=== PATIENT | female | born 1965 | race Caucasian/White ===

== ENCOUNTER → 2017-07-02 17:56 | Emergency (ER) | payer OTHER ==
[~2017-07-02] VITALS: Ht 170.2 cm; Wt 64.9 kg
[~2017-07-02 17:56] MED LIST: ACEASPCAF PO; ACET325; ACET325 PO; ACET500 PO; ACET650SUP; ALBU90OI INH; ALBU90OI61 INH; ALEVE220 MG PO; AMOCLA500 PO; AMOX500 PO; AMOX875 PO; AZIT250 PO; AZIT500 PO; Albuterol2.5 MG/0.5 INH; BUDE32NIS; CALCA500CH PO; CEPH500 PO; CIPR250 PO; CIPR500 PO; CODACE30 PO; CODBUTASA PO; CRUTCH4 USE; CYCL10 PO; Cheratussin AC118 ML PO; DIBU30TO PR; DOC250 PO; DOCU100 PO; Duoneb 2.5-0.5 M3 ML INH; ESTR.05P TOP; ESTR2 PO; EXCEDRINE; Esgic Tablet1 EACH PO; Excedrin Extra1 EACH PO; FAMO40 PO; GUAPSEER PO; HYDACE5 PO; HYDACE7.5 PO; HYDGUAL120; HYDGUAL120 PO; HYDHOMSY PO; HYDR1TAB94 PO; IBU; IBUP200; IBUP400 PO; IBUP600 PO; IBUP800; IBUP800 PO; LEVFLO500 PO; LORA1 PO; Loperamide2 MG PO; MELO7.5 PO; META800 PO; METO25 PO; METR500 PO; MULVIT; MULVITA; MULVITMINF; NAPR220 PO; NAPR500 PO; NAPR550 PO; NYQUIL; OMEP10ER PO; OMEP20ER PO; OMEP40CA12 PO; OTC COLD MED; OXYACE5T; OXYACE5T PO; OXYC5 PO; Omeprazole20 M1 PO; PHENA200 PO; PROACE100 PO; PROBIOTIC1 EAC1; PROC10 PO; PROM25 PO; PROM25S PR; Pain Relief500 MG PO; Protonix40 MG PO; RANI150 PO; RXCODACET PO; RXCYCL10 PO; RXHYDACE PO; RXHYDGUAS PO; RXNAPNA550 PO; RXPHEN200 PO; RXSULTRIDS PO; RXTRAM50 PO; SIME80CH PO; SULTRIDS PO; TRAACE PO; TRAM50 PO; TYL; TYLENOL AND ADVIL; Ultram50 MG PO; VALA500 PO; VALD20 PO; Zithromax250 MG PO; [UNRECOGNIZED DRUG - OTHER]; [UNRECOGNIZED DRUG - REMARK]
[2017-07-02 19:41] LABS: Influenza A Negative (NEGATIVE); Influenza B Negative (NEGATIVE)
== END | disposition home or self-care (01) ==
LOC: ER 17:56
PROVIDERS: Physician Assistant
DX: R05 Cough (principal); R06.2 Wheezing; F17.200 Nicotine dependence, unspecified, uncomplicated; Z88.6 Allergy status to analgesic agent; Z88.2 Allergy status to sulfonamides; Z88.5 Allergy status to narcotic agent; Z90.49 Acquired absence of other specified parts of digestive tract; Z90.89 Acquired absence of other organs; Z90.710 Acquired absence of both cervix and uterus
CPT/HCPCS: 87804; 94640; 94760; 99283

== ENCOUNTER 2017-12-26 14:01 | Emergency (ER) | payer OTHER ==
[~2017-12-26] VITALS: Ht 170.2 cm; Wt 64.4 kg
[~2017-12-26 14:01] MED LIST changes: -HYDR1TAB94 PO
[2017-12-26] MEDS ORDERED: HYDR1TAB94 PO (15:20)
== END 2017-12-26 15:50 | disposition home or self-care (01) ==
LOC: ER 14:01
DX: S61.213A Laceration without foreign body of left middle finger without damage to nail, initial encounter (principal); W25.XXXA Contact with sharp glass, initial encounter; Z88.2 Allergy status to sulfonamides; Z79.891 Long term (current) use of opiate analgesic; F17.210 Nicotine dependence, cigarettes, uncomplicated
CPT/HCPCS: 12001; 99283

== ENCOUNTER 2020-12-18 20:00 | Emergency (ER) | payer OTHER ==
[~2020-12-18] VITALS: Ht 170.2 cm; Wt 61.2 kg
[~2020-12-18 20:00] MED LIST changes: +HYDR1TAB94 PO
== END 2020-12-18 21:53 | disposition home or self-care (01) ==
LOC: ER 20:00
DX: S61.411A Laceration without foreign body of right hand, initial encounter (principal); F17.210 Nicotine dependence, cigarettes, uncomplicated; Z88.6 Allergy status to analgesic agent; Z88.2 Allergy status to sulfonamides; W26.0XXA Contact with knife, initial encounter
CPT/HCPCS: 12002; 99282-25

== ENCOUNTER 2022-01-25 21:38 | Emergency (ER) | payer OTHER ==
[~2022-01-25] VITALS: Ht 170.2 cm; Wt 63.5 kg
[~2022-01-25 21:38] MED LIST changes: +Clindamycin HC150 MG PO; +DOXY100 PO
[2022-01-25] MEDS ORDERED: LEVAQUIN750 MG PO (23:13)
[2022-01-25] MEDS ORDERED: CEPH500 PO (23:13)
== END 2022-01-25 23:25 | disposition home or self-care (01) ==
LOC: ER 21:38
DX: R21 Rash and other nonspecific skin eruption (principal); F17.210 Nicotine dependence, cigarettes, uncomplicated; Z88.6 Allergy status to analgesic agent; Z88.2 Allergy status to sulfonamides
CPT/HCPCS: A9270

== ENCOUNTER 2022-10-10 17:05 | Emergency (ER) | payer OTHER ==
[~2022-10-10] VITALS: Ht 170.2 cm; Wt 63.5 kg
[~2022-10-10 17:05] MED LIST changes: +LEVAQUIN750 MG PO
== END 2022-10-10 19:07 | disposition home or self-care (01) ==
LOC: ER 17:05
DX: M25.562 Pain in left knee (principal); F17.210 Nicotine dependence, cigarettes, uncomplicated; Z88.2 Allergy status to sulfonamides; Z79.899 Other long term (current) drug therapy
CPT/HCPCS: 29505; 73562-LT; 99283-25; A9270

== ENCOUNTER 2023-11-04 15:07 | Emergency (ER) | payer OTHER ==
[~2023-11-04] VITALS: Ht 170.2 cm; Wt 77.1 kg
[2023-11-04 15:16] VITALS: BP 95/77
[2023-11-04] MEDS ORDERED: CEPH500 PO (15:35)
[2023-11-04] MEDS ORDERED: Cephalexin Monohydrate 500 MG Cap PO ONE (15:35)
== END 2023-11-04 15:53 | disposition home or self-care (01) ==
LOC: ER 15:07
DX: M79.672 Pain in left foot (principal); M79.675 Pain in left toe(s); F17.210 Nicotine dependence, cigarettes, uncomplicated; Z88.2 Allergy status to sulfonamides; Z88.8 Allergy status to other drugs, medicaments and biological substances
CPT/HCPCS: 99283; A9270

== ENCOUNTER 2024-02-13 17:52 | Emergency (ER) | payer OTHER ==
[~2024-02-13] VITALS: Ht 170.2 cm; Wt 65.8 kg
[2024-02-13 18:28] LABS: BASOPHILS ABSOLUTE AUTO 0.14 K/mm3 (0.00-0.23); BASOPHILS PERCENT AUTO 2 % (0-2); EOSINOPHILS ABSOLUTE AUTO 0.08 K/mm3 (0.00-0.68); EOSINOPHILS PERCENT AUTO 1 % (0-6); Hematocrit 44.2 % (33.0-51.0); Hemoglobin 15.2 g/dL (11.5-16.0); IMMATURE GRAN ABSOLUTE AUTO 0.01 K/mm3 (0.00-0.10); IMMATURE GRAN PERCENT AUTO 0 % (0-1); LYMPHOCYTES ABSOLUTE AUTO 2.59 K/mm3 (0.84-5.20); LYMPHOCYTES PERCENT AUTO 33 % (21-46); MONOCYTES ABSOLUTE AUTO 0.73 K/mm3 (0.16-1.47); MONOCYTES PERCENT AUTO 9 % (4-13); Mean Corpuscular HGB 29.6 pg (26.0-34.0); Mean Corpuscular HGB Conc 34.4 g/dL (31.5-36.5); Mean Corpuscular Volume 86 fL (80-100); Mean Platelet Volume 8.8 fL (9.1-12.4); NEUTROPHILS ABSOLUTE AUTO 4.31 K/mm3 (1.96-9.15); NEUTROPHILS PERCENT AUTO 55 % (41-73); Platelet Count 290 K/mm3 (150-400); RDW Coefficient Variation 13.3 % (11.7-14.2); RDW Standard Deviation 41.9 fL (35.1-46.3); Red Blood Cell Count 5.14 M/mm3 (3.80-5.20); White Blood Cell Count 7.86 K/mm3 (4.00-11.30)
[2024-02-13] MEDS ORDERED: DiphenhydrAMINE HCl 50 MG/ML 1ML Vial IV ONE (18:45)
[2024-02-13] MEDS ORDERED: Pantoprazole Sodium 40 MG Injection IV ONE (18:45)
[2024-02-13] MEDS ORDERED: Lactated Ringer's 1,000 ML IV ONE (18:45)
[2024-02-13] MEDS ORDERED: Metoclopramide HCl 5MG / ML 2ML Vial IV ONE (18:45)
[2024-02-13] MEDS ORDERED: Mag Hydrox/AL Hydrox/Simeth 30 ML UDC PO ONE (18:45)
[2024-02-13 19:20] LABS: Albumin, Blood 3.9 g/dL (3.4-5.0); Bilirubin, Total 0.4 mg/dL (0.1-1.0); Bun/Creatinine Ratio 15.3 (12.0-20.0); Calcium, Blood 9.5 mg/dL (8.5-10.1); Creatinine, Blood 0.98 mg/dL (0.40-1.00); Globulin, Blood 3.9 g/dL (2.2-4.0); Potassium, Blood 3.9 mmol/L (3.5-5.5); Total Protein, Blood 7.8 g/dL (6.4-8.2)
[2024-02-13] MEDS ORDERED: PEPCID40 MG PO (20:20)
[2024-02-13] MEDS ORDERED: ONDA4ODT SL (20:20)
[2024-02-13] MEDS ORDERED: ACETAMINOPHEN500 MG PO (20:20)
[2024-02-13] MEDS ORDERED: RX Prepack 2 Tabs Ondansetron ODT 4MG UD ONE (20:25)
[2024-02-13 20:30] VITALS: BP 118/61
[2024-02-14 07:20] LABS: Influenza A, PCR NEGATIVE (NEGATIVE); Influenza B, PCR NEGATIVE (NEGATIVE); Resp Syncytial Virus, PCR NEGATIVE (NEGATIVE); SARS-Cov-2 (COVID-19) PCR, MMC NEGATIVE (NEGATIVE)
== END 2024-02-13 21:02 | disposition home or self-care (01) ==
LOC: ER 17:52
PROVIDERS: Emergency Medicine
DX: K29.70 Gastritis, unspecified, without bleeding (principal); K25.9 Gastric ulcer, unspecified as acute or chronic, without hemorrhage or perforation; Z88.2 Allergy status to sulfonamides; Z88.8 Allergy status to other drugs, medicaments and biological substances
CPT/HCPCS: 0241U; 80053; 83690; 85025; 96361; 96374; 96375; 99284-25; A9270; J1200; J2470; J2765; J7120

== ENCOUNTER 2024-04-14 14:41 | Emergency (ER) | payer OTHER ==
[~2024-04-14] VITALS: Ht 170.2 cm; Wt 76.7 kg
[~2024-04-14 14:41] MED LIST changes: +ACETAMINOPHEN500 MG PO; +ONDA4ODT SL; +PEPCID40 MG PO
[2024-04-14 14:51] VITALS: BP 138/62
[2024-04-14] MEDS ORDERED: Methadone HCL 10 MG TAB PO ONE (15:10)
== END 2024-04-14 15:27 | disposition home or self-care (01) ==
LOC: ER 14:41
DX: Z76.0 Encounter for issue of repeat prescription (principal); F17.210 Nicotine dependence, cigarettes, uncomplicated; Z88.6 Allergy status to analgesic agent; Z88.2 Allergy status to sulfonamides
CPT/HCPCS: 99281; A9270

== ENCOUNTER 2024-06-02 12:13 | Emergency (ER) | payer OTHER ==
[~2024-06-02] VITALS: Ht 170.2 cm; Wt 68.0 kg
[2024-06-02 12:38] VITALS: BP 110/75
[2024-06-02] MEDS ORDERED: VITAMIN D310 MC4 PO (12:41)
[2024-06-02] MEDS ORDERED: ZOLOFT50 MG PO (12:41)
[2024-06-02] MEDS ORDERED: Oxybutynin Chlor5 M1 PO (12:41)
[2024-06-02] MEDS ORDERED: TRAZ100 PO (12:41)
[2024-06-02] MEDS ORDERED: PEPCID40 MG PO (12:41)
[2024-06-02] MEDS ORDERED: Methadone HCL 10 MG TAB PO ONE (13:15)
== END 2024-06-02 13:37 | disposition home or self-care (01) ==
LOC: ER 12:13
DX: Z76.0 Encounter for issue of repeat prescription (principal); F17.210 Nicotine dependence, cigarettes, uncomplicated
CPT/HCPCS: 99281; A9270

== ENCOUNTER 2024-08-11 11:48 | Emergency (ER) | payer OTHER ==
[~2024-08-11] VITALS: Ht 167.6 cm; Wt 63.5 kg
[~2024-08-11 11:48] MED LIST changes: +Oxybutynin Chlor5 M1 PO; +TRAZ100 PO; +VITAMIN D310 MC4 PO; +ZOLOFT50 MG PO
[2024-08-11 12:35] VITALS: BP 117/73
[2024-08-11] MEDS ORDERED: Methadone HCL 10 MG TAB PO ONE (12:40)
== END 2024-08-11 12:53 | disposition home or self-care (01) ==
LOC: ER 11:48
DX: Z76.0 Encounter for issue of repeat prescription (principal); F11.90 Opioid use, unspecified, uncomplicated; F17.210 Nicotine dependence, cigarettes, uncomplicated; K21.9 Gastro-esophageal reflux disease without esophagitis; K22.10 Ulcer of esophagus without bleeding; Z88.6 Allergy status to analgesic agent; Z88.2 Allergy status to sulfonamides; Z79.1 Long term (current) use of non-steroidal anti-inflammatories (NSAID); Z79.83 Long term (current) use of bisphosphonates; Z79.899 Other long term (current) drug therapy; Z88.8 Allergy status to other drugs, medicaments and biological substances
CPT/HCPCS: 99281; A9270

== ENCOUNTER 2024-09-15 12:08 | Emergency (ER) | payer OTHER ==
[~2024-09-15] VITALS: Ht 170.2 cm; Wt 72.6 kg
[2024-09-15 13:01] VITALS: BP 135/81
[2024-09-15] MEDS ORDERED: Methadone HCL 10 MG TAB PO ONE (13:40)
== END 2024-09-15 13:55 | disposition home or self-care (01) ==
LOC: ER 12:08
DX: Z76.0 Encounter for issue of repeat prescription (principal); F11.20 Opioid dependence, uncomplicated; F17.210 Nicotine dependence, cigarettes, uncomplicated; Z88.8 Allergy status to other drugs, medicaments and biological substances; Z88.2 Allergy status to sulfonamides; Z79.899 Other long term (current) drug therapy
CPT/HCPCS: 99281; A9270

== ENCOUNTER 2024-09-23 12:02 | Day surgery (SDC) | payer OTHER ==
[~2024-09-23] VITALS: Ht 170.2 cm; Wt 70.0 kg
[~2024-09-23 12:02] MED LIST changes: +Lactated Ringer's 1,000 ML IV ONE; +propofoL 50 ML IV ONE
[2024-09-23] MEDS ORDERED: MELATONIN5 M1 (12:56)
[2024-09-23] MEDS ORDERED: POLY500 (12:56)
[2024-09-23] MEDS ORDERED: MULTI-VITAMIN1 EAC2 (13:01)
[2024-09-23] MEDS ORDERED: METH10 (13:01)
[2024-09-23] MEDS ORDERED: Lactated Ringer's 1,000 ML IV ONE (13:41)
[2024-09-23 15:05] VITALS: BP 106/60
== END 2024-09-23 15:10 | disposition home or self-care (01) ==
LOC: ORSCSDS 12:02
PROVIDERS: Internal Medicine Gastroenterology
PROC: 0DB68ZX Excision of Stomach, Via Natural or Artificial Opening Endoscopic, Diagnostic (ICD-10-PCS; principal; 2024-09-23 13:30)
DX: R13.10 Dysphagia, unspecified (principal); K21.9 Gastro-esophageal reflux disease without esophagitis; Z87.11 Personal history of peptic ulcer disease; F15.11 Other stimulant abuse, in remission; K29.70 Gastritis, unspecified, without bleeding; K44.9 Diaphragmatic hernia without obstruction or gangrene; F17.210 Nicotine dependence, cigarettes, uncomplicated; Z79.899 Other long term (current) drug therapy
CPT/HCPCS: 88305; 88342; J2704; J7120

== ENCOUNTER 2024-11-06 17:30 | Emergency (ER) | payer OTHER ==
[~2024-11-06] VITALS: Ht 170.2 cm; Wt 71.7 kg
[2024-11-06 17:46] VITALS: BP 134/78
[2024-11-06] MEDS ORDERED: Ondansetron 4 MG SoluTab SL ONE (17:50)
[2024-11-06] MEDS ORDERED: Methadone HCL 10 MG TAB PO ONE (18:15)
== END 2024-11-06 18:22 | disposition home or self-care (01) ==
LOC: ER 17:30
DX: Z76.89 Persons encountering health services in other specified circumstances (principal); R11.0 Nausea; Z79.899 Other long term (current) drug therapy
CPT/HCPCS: 99281; A9270

== ENCOUNTER → 2024-11-06 | Outpatient (CLI) | payer OTHER ==
[~2024-11-06] MED LIST changes: -Lactated Ringer's 1,000 ML IV ONE; +MELATONIN5 M1; +METH10; +MULTI-VITAMIN1 EAC2; +POLY500; -propofoL 50 ML IV ONE
[2024-11-12 12:19] LABS: Stool Occult Bld Immuno 1 Positive (NEGATIVE)
== END ==
LOC: LAB 15:05 → LAB SHORT 15:05
DX: Z12.11 Encounter for screening for malignant neoplasm of colon (principal)
CPT/HCPCS: G0328

== ENCOUNTER 2024-11-11 15:52 | Emergency (ER) | payer OTHER ==
[~2024-11-11] VITALS: Ht 170.2 cm; Wt 72.6 kg
[2024-11-11 16:17] VITALS: BP 127/78
[2024-11-11] MEDS ORDERED: Methadone HCL 10 MG TAB PO ONE (16:20)
== END 2024-11-11 18:05 | disposition home or self-care (01) ==
LOC: ER 15:52
DX: Z76.89 Persons encountering health services in other specified circumstances (principal); K21.9 Gastro-esophageal reflux disease without esophagitis; F17.210 Nicotine dependence, cigarettes, uncomplicated; Z87.11 Personal history of peptic ulcer disease; Z79.891 Long term (current) use of opiate analgesic; Z88.6 Allergy status to analgesic agent; Z88.2 Allergy status to sulfonamides; Z88.5 Allergy status to narcotic agent; Z79.899 Other long term (current) drug therapy; Z59.89 Other problems related to housing and economic circumstances
CPT/HCPCS: 99281; A9270

== ENCOUNTER 2025-02-16 12:51 | Emergency (ER) | payer OTHER ==
[~2025-02-16] VITALS: Ht 170.2 cm; Wt 73.5 kg
[2025-02-16 13:12] VITALS: BP 117/73
== END 2025-02-16 13:34 | disposition home or self-care (01) ==
LOC: ER 12:51
DX: Z76.89 Persons encountering health services in other specified circumstances (principal); F11.91 Opioid use, unspecified, in remission; F17.210 Nicotine dependence, cigarettes, uncomplicated
CPT/HCPCS: 99281; A9270